=== PATIENT | female | born 1945 | race Caucasian/White ===

== ENCOUNTER 2019-04-16 13:16 | Inpatient (IN) ==
[~2019-04-16 13:16] MED LIST: ceFAZolin 1,000 MG, Sodium Chloride IRRigation 1,000 ML IR ONE
[2019-04-16] MEDS ORDERED: Albuterol 2.5 MG/3 ML NEBULIZER IH ONE (14:08)
[2019-04-16] MEDS ORDERED: CeFAZolin Syr 2,000MG/20 ML 2,000 MG/20 ML SYRINGE IVPB ONE (14:09)
[2019-04-16] MEDS ORDERED: diazePAM 5 MG TABLET PO ONE (14:38)
[2019-04-16] MEDS ORDERED: Morphine Sulfate 2 MG/ML SYRINGE IVP PRN (14:45)
[2019-04-16] MEDS ORDERED: *HR* Labetalol 20 MG/4 ML SYRINGE IVP PRN ×2 (14:45→21:41)
[2019-04-16] MEDS ORDERED: Ondansetron 4 MG/2 ML VIAL IVP ONE (14:45)
[2019-04-16] MEDS ORDERED: *HR* Midazolam HCl 2 MG/2 ML VIAL IVP PRN (14:45)
[2019-04-16] MEDS ORDERED: Albuterol 2.5 MG/3 ML NEBULIZER IH PRN (14:45)
[2019-04-16] MEDS ORDERED: *HR* Propofol 200 MG/20 ML VIAL IVP ONE (16:51)
[2019-04-16] MEDS ORDERED: *HR* Remifentanil 2 MG VIAL IVP ONE (16:51)
[2019-04-16] MEDS ORDERED: *HR* Midazolam HCl 2 MG/2 ML VIAL ONE (16:51)
[2019-04-16] MEDS ORDERED: Heparin 1,000 UNITS/500 mL 0 ML ONE (16:52)
[2019-04-16] MEDS ORDERED: Protamine Sulfate 50 MG/5 ML VIAL IVP ONE (16:55)
[2019-04-16] MEDS ORDERED: Heparin 1,000 UNITS/500 mL 1,000 ML ONE (16:55)
[2019-04-16] MEDS ORDERED: Lidocaine 1% 20 ML MDV ONE (16:56)
[2019-04-16] MEDS ORDERED: Dexamethasone 4 MG/ML VIAL ONE (17:20)
[2019-04-16] MEDS ORDERED: Ondansetron 4 MG/2 ML VIAL ONE (17:20)
[2019-04-16] MEDS ORDERED: *HR* Rocuronium Bromide 50 MG/5 ML VIAL ONE (17:20)
[2019-04-16] MEDS ORDERED: *HR* PHENYLEPHRINE 1,000 MCG/10 ML SYRINGE IVP ONE (17:20)
[2019-04-16] MEDS ORDERED: Lidocaine -MPF 1% 5 ML AMPUL ONE (17:21)
[2019-04-16] MEDS ORDERED: Lidocaine -MPF 2% 2 ML VIAL ONE (17:41)
[2019-04-16] MEDS ORDERED: Esmolol 100 MG/10 ML VIAL IVP ONE (17:48)
[2019-04-16] MEDS ORDERED: *HR* HYDROmorphone (PF) 1 MG/ML SYRINGE ONE (20:03)
[2019-04-16] MEDS ORDERED: Acetaminophen 325 MG TABLET PO PRN (21:41)
[2019-04-16] MEDS ORDERED: Naloxone 0.4 MG/ML INJ IVP PRN (21:41)
[2019-04-16] MEDS ORDERED: Ondansetron 4 MG/2 ML VIAL IVP PRN (21:41)
[2019-04-16] MEDS: traZODone 50 MG TABLET PO SCH ×2 (22:01→22:04)
[2019-04-16] MEDS: *HR* HYDROcodone/Acet 5/325 mg TABLET PO PRN (22:01)
[2019-04-16] MEDS ORDERED: 0.9 % Sodium Chloride 1,000 ML ONE (23:38)
[2019-04-16] MEDS ORDERED: Ringers Solution, Lactated 1,000 ML ONE (23:55)
[2019-04-17] MEDS ORDERED: Ringers Solution, Lactated 500 ML IVC ONE (00:09)
[2019-04-17 05:14] LABS: Basophils % 0.4 %; Eosinophils # 0.1 K/mcL (0.0-0.6); Eosinophils % 0.8 %; Hematocrit 29.5 % (35.3-44.9); Hemoglobin 9.6 g/dL (11.5-15.4); Immature Granulocytes % 0.4 % (0-4); Lymphocytes # 2.2 K/mcL (0.6-4.6); Mean Corpuscular HGB Conc 32.5 g/dL (31.6-35.5); Mean Corpuscular Hemoglobin 31.7 pg (28.0-33.3); Mean Corpuscular Volume 97.4 fL (83.0-100.0); Monocytes # 0.6 K/mcL (0.0-1.3); Monocytes % 6.9 %; Neutrophils # 6.2 K/mcL (1.6-8.9); Platelet Count 258 K/mcL (140-400); Red Blood Count 3.03 M/mcL (3.82-4.97); Red Cell Distribution Width 12.4 % (11.5-14.5); Segmented Neutrophils % 67.5 %; White Blood Count 9.1 K/mcL (4.3-11.1)
[2019-04-17 05:36] LABS: BUN/Creatinine Ratio 29 (6-26); Blood Urea Nitrogen 16 mg/dL (8-23); Carbon Dioxide 23 mEq/L (23-29); Chloride 106 mEq/L (98-107); Glucose 130 mg/dL (70-105); Osmolality,Calculated 285 (280-300); Sodium 136 mEq/L (136-145); eGFR For African Americans > 60 (> 60); eGFR For Non-African Americans > 60 (> 60)
[2019-04-17] MEDS: *HR* HYDROcodone/Acet 5/325 mg TABLET PO PRN (07:41)
[2019-04-17 15:47] VITALS: BP 139/77
== END 2019-04-17 19:15 | disposition home or self-care (01) | DRG 39 ==
LOC: SAMDAY 13:16 → 2NNU 21:32
PROVIDERS: ADMIT Surgery Vascular Surgery; ATTEND Surgery Vascular Surgery